=== PATIENT | female | born 1955 | race Asian ===

== ENCOUNTER 2018-08-22 08:19 | Day surgery (SDC) | payer OTHER ==
[2018-08-22] MEDS ORDERED: MIDAZOLAM 1 MG/ML 2 ML INJ ×2 (10:17)
[2018-08-22] MEDS ORDERED: FENTAnyl 50 MCG/ML VIAL (10:18)
== END 2018-08-22 12:12 | disposition home or self-care (01) ==
LOC: GIL 08:19
DX: Z12.11 Encounter for screening for malignant neoplasm of colon (principal); K64.8 Other hemorrhoids; D12.5 Benign neoplasm of sigmoid colon
CPT/HCPCS: 45380; 88305